=== PATIENT | female | born 2000 | race Hispanic/Latino ===

== ENCOUNTER 2024-03-30 08:06 | Emergency (ER) | payer BC, OTHER ==
[2024-03-30] MEDS ORDERED: NA CHLORIDE 0.9% 1,000 ML ONE ×2 (08:26→10:00)
[2024-03-30] MEDS ORDERED: KETOROLAC 30 MG/ML INJ ONE (08:33)
[2024-03-30] MEDS ORDERED: DIPHENHYDRAMINE 50 MG/ML VIAL ONE (08:33)
[2024-03-30] MEDS ORDERED: METOCLOPRAMIDE 10 MG/2mL INJ ONE (08:34)
[2024-03-30 08:48] LABS: Absolute Basophils 0.1 K/uL (0-0.5); Absolute Eosinophils 0.5 K/uL (0-0.5); Absolute Lymphocytes (CBC) 3.5 K/uL (0.7-4.9); Absolute Monocytes 0.5 K/uL (0.1-1.3); Absolute Neutrophil 3.7 K/uL (1.8-8.0); Eosinophils % 5.8 % (0-4.4); Hematocrit 38.6 % (36.0-45.0); Hemoglobin 12.9 g/dL (12.0-15.0); Lymphocytes % 42.9 % (15.3-44.8); MCH 29.5 pg (27.0-35.0); MCHC 33.5 g/dL (32.0-36.0); MPV 7.2 fL (7.6-11.3); Monocytes % 5.5 % (3.3-12.3); Neutrophils % 44.8 % (41.7-73.7); Platelets 404 thou/uL (152-406); RBC Red Blood Cell Count 4.39 M/uL (3.86-4.86); Red Cell Distribution Width 13.3 % (12.1-15.2)
--- NOTE | 2024-03-30 09:02 | RAD REPORT ---
EXAM DESCRIPTION: US - Abdomen Exam Limited - 03/30/2024 8:53 am CLINICAL HISTORY: RUQ abdomen pain COMPARISON: No comparisons FINDINGS: The gallbladder demonstrates no gallstones. No pericholecystic fluid or gallbladder wall t hickening. The common bile duct is mildly prominent for age measuring 6 mm. The liver demonstrates no findings of intrahepatic biliary dilatation. IMPRESSION: Cholelithiasis. Upper limit of normal common bile duct for age.
[2024-03-30 09:04] LABS: Albumin 3.4 g/dL (3.4-5.0); Albumin/Globulin Ratio 0.9 (1.1-1.8); Anion Gap 6.4 mEq/L (5.0-15.0); Bilirubin Total 1.2 mg/dL (0.2-1.0); Globulin 3.6 g/dL (2.3-3.5); Potassium 3.4 mEq/L (3.5-5.1)
[2024-03-30 09:31] LABS: Sqamous Epithelial 20-50 /HPF (None Seen); Urine Bacteria None Seen /HPF (<20); Urine Bilirubin NEGATIVE (Negative); Urine Blood Negative (Negative); Urine Clarity Extremely Turbid (Clear); Urine Color Yellow (Yellow); Urine Culture Reflex Order NOT NEEDED; Urine Glucose NEGATIVE (Negative); Urine Ketones NEGATIVE (Negative); Urine Microscopic Reflex YN ORDER UMIC; Urine Mucus 4+ /HPF (None Seen); Urine Nitrite NEGATIVE (Negative); Urine Protein 1+ (Negative); Urine Urobilinogen Normal (Normal); Urine WBC <5 /HPF (<5)
--- NOTE | 2024-03-30 10:22 | RAD REPORT ---
EXAM DESCRIPTION: CTAbdomen Pelvis W Contrast - 03/30/2024 9:42 am CLINICAL HISTORY: Abdominal pain. ABD PAIN COMPARISON: Abdomen Exam Limited dated 03/30/2024 TECHNIQUE: Biphasic CT imaging of the abdomen and pelvis was performed with 100 ml non-ionic IV cont rast. All CT scans are performed using dose optimization technique as appropriate and may include automated exposure control or mA/KV adjustment according to patient size. FINDINGS: Small calcified granuloma left lung base. Calcified left hilar lymph nodes also seen. The findings likely indicate previous granulomatous infection. Liver size is prominent with diffuse fatty liver. No biliary dilatation is seen. 22 mm vague low-dens ity lesion in the right lobe of the liver laterally is seen, likely benign but incompletely assessed. The spleen, pancreas, adrenal glands and kidneys are within normal limits. No bowel obstruction, free air, free fluid or abscess. There is a mild thickened appearance to the wa ll of the ascending colon and transverse colon which could indicate a mild nonspecific colitis. The a ppendix is normal. No evidence of significant lymphadenopathy. No suspicious bony findings. IMPRESSION: Mild thickened appearance to the ascending and transverse colon suggests a mild nonspeci fic colitis. Evidence of prior granulomatous infection. Mild fatty liver.
[2024-03-30] MEDS ORDERED: metroNIDAZOLE 500 MG TABLET ONE (11:03)
[2024-03-30] MEDS ORDERED: CIPROFLOXACIN HCL 500 MG TAB ONE (11:03)
--- NOTE | 2024-03-30 11:23 | ER ---
Nurse's Notes [facility] Name: Katherin Garcia Age: 23 yrs Sex: Female : 2000 Arrival Date: 03/30/2024 Time: 08:06 Bed 14 Private MD: Diagnosis: Colitis;Other cholelithiasis without obstruction Presentation: 03/30 08:15 Chief complaint: Patient states: Upper abdominal pain started suddenly at 0740 AM with ll1 nausea. Feels weak and shaky, no known fever. Coronavirus screen: Client denies travel out of the [place] in the last 14 days. fatigue, nausea. Ebola Screen: Patient denies travel to an Ebola-affected area in the 21 days before illness onset. Initial Sepsis Screen: Does the patient meet any 2 criteria? No. Patient's initial sepsis screen is negative. Does the patient have a suspected source of infection? No. Patient's initial sepsis screen is negative. Risk Assessment: Do you want to hurt yourself or someone else? Patient reports no desire to harm self or others. Onset of symptoms was March 30, 2024. 08:15 Method Of Arrival: Ambulatory ll1 08:15 Acuity: BRENNEN 2 ll1 Triage Assessment: 08:16 General: Appears distressed, uncomfortable, Behavior is calm, cooperative, appropriate ll1 for age. General: Reports feeling ill for fatigue for. Pain: Complains of pain in upper abdomen Pain currently is 8 out of 10 on a pain scale. Quality of pain is described as aching, crampy. Neuro: Reports weakness. GI: Reports upper abdominal pain, cramping, nausea. Historical: - Allergies: 08:14 No Known Allergies; ll1 - PMHx: 08:14 None; ll1 - PSHx: 08:14 None; ll1 - Immunization history:: Adult Immunizations up to date. - Infectious Disease History:: Denies. - Social history:: Smoking status: Reported history of juuling and/or vaping. Patient denies any tobacco usage or history of. Screenin:31 [facility] ED Fall Risk Assessment (Adult) History of falling in the last 3 months, bp including since admission No falls in past 3 months (0 pts). Abuse screen: Denies threats or abuse. Denies injuries from another. Nutritional screening: No deficits noted. Tuberculosis screening: No symptoms or risk factors identified. Assessment: 08:31 General: Appears in no apparent distress. uncomfortable, obese, Behavior is calm, bp cooperative, appropriate for age. Pain: Complains of pain in abdomen. GI: Bowel sounds present X 4 quads. Abd is soft X 4 quads. 08:51 Reassessment: [place]ED FROM [place] bp 10:35 Reassessment: No changes from previously documented assessment. Patient and/or family mb9 updated on plan of care and expected duration. Pain level reassessed. Patient is alert, oriented x 3, equal unlabored respirations, skin warm/dry/pink. Vital Signs: 08:15 BP 96 / 62; Pulse 48; Resp 16; Temp 97.6; Pulse Ox 97% on R/A; Weight 86.18 kg; Height ll1 5 ft. 4 in. ; Pain 8/10; 08:52 BP 92 / 46; Pulse 47; Resp 15; Pulse Ox 94% ; bp 09:30 BP 97 / 59; Pulse 55; Resp 16; Pulse Ox 95% ; bp 11:07 BP 105 / 73; Pulse 62; Resp 18; Pulse Ox 100% on R/A; mb9 08:15 Body Mass Index 32.61 (86.18 kg, 162.56 cm) ll1 08:15 Pain Scale: Adult ll1 ED Course: 08:07 Patient arrived in ED. mr 08:09 Que Acosta, RN is Primary Nurse. bp 08:09 Ehsan Fernández MD is Attending Physician. sp3 08:14 Arm band placed on Patient placed in an exam room, on a stretcher. ll1 08:16 Triage completed. ll1 08:22 Alberto Mujica PA is PHCP. cp 08:31 Patient has correct armband on for positive identification. bp 08:39 Inserted saline lock: 20 gauge in left antecubital area, using aseptic technique. Blood rc3 collected. 08:40 CBC with Diff Sent. rc3 08:40 CMP Sent. rc3 08:40 Lipase Sent. rc3 08:40 Lactate w/ 2H reflex if indic. Sent. rc3 08:54 US Abdomen Limited In Process Unspecified. EDMS 09:44 CT Abd/Pelvis - IV Contrast Only In Process Unspecified. EDMS 11:08 No provider procedures requiring assistance completed. mb9 11:20 Alireza Flower MD is Referral Physician. cp 11:33 IV discontinued, intact, bleeding controlled, No redness/swelling at site. Pressure mb9 dressing applied. Administered Medications: 08:51 Drug: NS 0.9% IV 1000 ml IV at 1 bolus Per protocol; 1000 mL bolus Route: IV; Rate: 1 bp bolus; Site: left antecubital; 08:51 Drug: Ketorolac IVP 15 mg IVP once; if test negative Route: IVP; Site: left bp antecubital; 08:51 Drug: metoCLOPramide IVP 10 mg IVP once; over 1 to 2 minutes Route: IVP; Site: left bp antecubital; 08:51 Drug: diphenhydrAMINE IVP 25 mg IVP once Route: IVP; Site: left antecubital; bp 10:03 Drug: NS 0.9% IV 1000 ml IV at 1 bolus Per protocol; 1000 mL bolus Route: IV; Rate: 1 bp bolus; Site: left antecubital; 11:06 Drug: Ciprofloxacin PO 500 mg PO once Route: PO; mb9 11:06 Drug: metroNIDAZOLE PO 500 mg PO once Route: PO; mb9 Medication: 08:31 VIS not applicable for this client. bp Outcome: 11:23 Discharge ordered by MD. cp 11:33 Discharged to home ambulatory, mb9 11:33 Condition: stable 11:33 Discharge instructions given to patient, Instructed on discharge instructions, follow up and referral plans. Demonstrated understanding of instructions, follow-up care, medications, Prescriptions given X 4, 11:34 Patient left the ED. mb9 Signatures: Dispatcher [employer] EDTN Jyoti Zelaya, [facility] Reg mr Alberto Mujica PA PA Que [place], RN RN bp Calli Reza RN RN ll1 Ehsan Fernández MD MD sp3 Jyoti Zavala RN RN mb9 Brianda Hughes3 Corrections: (The following items were deleted from the chart) 08:15 08:14 PSHx: Unable to Obtain; ll1 ll1 08:55 08:52 Pulse 47bpm; Resp 15bpm; Pulse Ox 94%; bp bp
--- NOTE | 2024-03-30 11:23 | EDPHYS ---
Physician Documentation [facility] Name: Katherin Garcia Age: 23 yrs Sex: Female : 2000 Arrival Date: 03/30/2024 Time: 08:06 Bed 14 Private MD: ED Physician Ehsan Fernández HPI: 03/30 08:25 This 23 yrs old Female presents to ER via Ambulatory with complaints of cp Abdominal Pain. 08:25 The patient presents with abdominal pain in the upper abdomen. Onset: The cp symptoms/episode began/occurred suddenly, this morning. Associated signs and symptoms: Pertinent positives: nausea, Pertinent negatives: blood in stools, chest pain, constipation, diarrhea, vomiting. The symptoms are described as constant. Severity of pain: in the emergency department the pain has improved moderately. Historical: - Allergies: 08:14 No Known Allergies; ll1 - PMHx: 08:14 None; ll1 - PSHx: 08:14 None; ll1 - Immunization history:: Adult Immunizations up to date. - Infectious Disease History:: Denies. - Social history:: Smoking status: Reported history of juuling and/or vaping. Patient denies any tobacco usage or history of. ROS: 08:30 Constitutional: Negative for fever, poor PO intake, cp 08:30 Eyes: Negative for injury, pain, redness, and discharge, cp 08:30 ENT: Negative for drainage from ear(s), ear pain, sore throat, difficulty swallowing, difficulty handling secretions, 08:30 Cardiovascular: Negative for chest pain, palpitations, 08:30 Respiratory: Negative for cough, shortness of breath, wheezing, 08:30 Abdomen/GI: Positive for abdominal pain, nausea, Negative for vomiting, diarrhea, constipation, 08:30 Back: Negative for injury or acute deformity, pain at rest, radiated pain, 08:30 : Negative for urinary symptoms, hematuria, pelvic pain, flank pain, 08:30 Neuro: Positive for weakness, Negative for altered mental status, dizziness, headache, syncope, near syncope, 08:30 All other systems are negative, Exam: 08:35 Constitutional: The patient appears in no acute distress, alert, awake, cp non-diaphoretic, non-toxic, well developed, well nourished, 08:35 Head/Face: Normocephalic, atraumatic. cp 08:35 Eyes: Periorbital structures: appear normal, Conjunctiva: normal, no exudate, no injection, Sclera: no appreciated abnormality, Lids and lashes: appear normal, bilaterally, 08:35 ENT: External ear(s): are unremarkable, Nose: is normal, Mouth: Lips: moist, Oral mucosa: pink and intact, moist, Posterior pharynx: Airway: no evidence of obstruction, patent, 08:35 Neck: ROM/movement: is normal, is supple, without pain, no range of motions limitations, no meningismus, 08:35 Chest/axilla: Inspection: normal, 08:35 Cardiovascular: Rate: bradycardic, Rhythm: regular, Edema: is not appreciated, JVD: is not appreciated, 08:35 Respiratory: the patient does not display signs of respiratory distress, Respirations: normal, no use of accessory muscles, no retractions, labored breathing, is not present, Breath sounds: are clear throughout, no decreased breath sounds, no stridor, no wheezing, 08:35 Abdomen/GI: Inspection: abdomen appears normal, Bowel sounds: active, all quadrants, Palpation: soft, in all quadrants, moderate abdominal tenderness, in the epigastric area and right upper quadrant, rebound tenderness, is not appreciated, involuntary guarding, is not appreciated, 08:35 Back: ROM is normal, CVA tenderness, is absent, 08:35 Skin: no rash present. 09:12 ECG was reviewed by the Attending Physician. cp Vital Signs: 08:15 BP 96 / 62; Pulse 48; Resp 16; Temp 97.6; Pulse Ox 97% on R/A; Weight 86.18 kg; Height ll1 5 ft. 4 in. ; Pain 8/10; 08:52 BP 92 / 46; Pulse 47; Resp 15; Pulse Ox 94% ; bp 09:30 BP 97 / 59; Pulse 55; Resp 16; Pulse Ox 95% ; bp 11:07 BP 105 / 73; Pulse 62; Resp 18; Pulse Ox 100% on R/A; mb9 08:15 Body Mass Index 32.61 (86.18 kg, 162.56 cm) ll1 08:15 Pain Scale: Adult ll1 MDM: 08:09 Patient medically screened. sp3 09:00 Differential diagnosis: appendicitis, cholecystitis, Cholelithiasis, diverticulitis, cp gastritis, non-specific abd pain, pancreatitis, Peptic Ulcer Disease, Pelvic Inflammatory Disease, Pyelonephritis, Ureterolithiasis, urinary tract infection, colitis. 11:22 Data reviewed: vital signs, nurses notes, lab test result(s), radiologic studies, CT cp scan, ultrasound, and as a result, I will discharge patient. 11:22 I considered the following discharge prescriptions or medication management in the emergency department Medications were administered in the Emergency Department. See MAR. Counseling: I had a detailed discussion with the patient and/or guardian regarding the historical points, exam findings, and any diagnostic results supporting the discharge/admit diagnosis, lab results, radiology results, the need for outpatient follow up, for definitive care, a general surgeon, a rat exterminator, to return to the emergency department if symptoms worsen or persist or if there are any questions or concerns that arise at home. Response to treatment: the patient's symptoms have markedly improved after treatment, and as a result, I will discharge patient. 03/30 08:21 Order name: CBC with Diff; Complete Time: 09: [facility] 03/30 09:05 Interpretation: Normal except: MPV 7.2; EOSINOPHIL % 5.8. 03/30 08:21 Order name: CMP; Complete Time: 09: [facility] 03/30 09:05 Interpretation: Normal except: K 3.4; GLUC 145; AST 14; BILIT 1.2; GLOB 3.6; A/G 0.9. 03/30 08:21 Order name: Lipase; Complete Time: 09: [facility] 03/30 08:21 Order name: Test, Urine; Complete Time: 09:31 [facility] 03/30 08:21 Order name: Urinalysis w/ reflexes; Complete Time: 09: [facility] 03/30 09:32 Interpretation: Normal except: [facility] Extremely Turbid; UPROT 1+; URBC 5-10; SQEPI 20-50; cp MUCUS 4+. 03/30 08:26 Order name: Lactate w/ 2H reflex if indic.; Complete Time: 09:31 03/30 08:21 Order name: CT Abd/Pelvis - IV Contrast Only; Complete Time: 10:53 [facility] 03/30 10:54 Interpretation: Report reviewed. 03/30 08:26 Order name: US Abdomen Limited; Complete Time: 09: 03/30 09:06 Interpretation: Report reviewed. cp 03/30 09:06 Order name: CT Abd/Pelvis - IV Contrast Only cp 03/30 08:21 Order name: IV Saline Lock; Complete Time: 08:31 sp3 03/30 08:21 Order name: Labs collected and sent; Complete Time: 08:31 sp3 03/30 10:54 Order name: PO challenge; Complete Time: 11:02 cp EC:12 Rate is 69 beats/min. Rhythm is regular. WA interval is normal. QRS interval is normal. cp QT interval is normal. T waves are Inverted in lead III. Interpreted by me. Reviewed by me. Administered Medications: 08:51 Drug: NS 0.9% IV 1000 ml IV at 1 bolus Per protocol; 1000 mL bolus Route: IV; Rate: 1 bp bolus; Site: left antecubital; 08:51 Drug: Ketorolac IVP 15 mg IVP once; if test negative Route: IVP; Site: left bp antecubital; 08:51 Drug: metoCLOPramide IVP 10 mg IVP once; over 1 to 2 minutes Route: IVP; Site: left bp antecubital; 08:51 Drug: diphenhydrAMINE IVP 25 mg IVP once Route: IVP; Site: left antecubital; bp 10:03 Drug: NS 0.9% IV 1000 ml IV at 1 bolus Per protocol; 1000 mL bolus Route: IV; Rate: 1 bp bolus; Site: left antecubital; 11:06 Drug: Ciprofloxacin PO 500 mg PO once Route: PO; mb9 11:06 Drug: metroNIDAZOLE PO 500 mg PO once Route: PO; mb9 Disposition Summary: 03/30/24 11:23 Discharge Ordered Notes: Location: Home cp Problem: new cp Symptoms: have improved cp Condition: Stable cp Diagnosis - Colitis cp - Other cholelithiasis without obstruction cp Followup: cp - With: Alireza Flower MD - When: 2 - 3 days - Reason: colitis Discharge Instructions: - Discharge Summary Sheet cp - Cholelithiasis cp - Colitis cp Forms: - Medication Reconciliation Form cp - Antibiotic Education cp - Prescription Opioid Use cp - Patient Portal Instructions cp - Leadership Thank You Letter cp Prescriptions: - Zofran 4 mg Oral Tablet - take 1 tablet ORAL route every 12 hours As needed; 20 tablet; Refills: 0, cp Product Selection Permitted - Cipro 500 mg Oral tablet - take 1 tablet ORAL route every 12 hours for 10 days; 20 tablet; Refills: 0, cp Product Selection Permitted - Metronidazole 500 mg Oral Tablet - take 1 tablet ORAL route every 8 hours; 30 tablet; Refills: 0, Product cp Selection Permitted - Diclofenac Sodium 75 mg Oral Tablet Sustained Release - take 1 tablet ORAL route 2 times per day; 30 tablet; Refills: 0, Product cp Selection Permitted Signatures: Dispatcher [employer] EDMS Alberto Mujica PA PA cp Peltier, Brian, RN RN bp Calli Reza RN RN ll1 Ehsan Fernández MD MD sp3 Jyoti Zavala RN RN mb9 Corrections: (The following items were deleted from the chart) 08:15 08:14 PSHx: Unable to Obtain; ll1 ll1 08:22 08:21 CBC+H.LAB.BRZ ordered. EDMS EDMS 08:22 08:21 COMPREHENSIVE METABOLIC PANEL+C.LAB.BRZ ordered. EDMS EDMS 08:22 08:21 LIPASE+C.LAB.BRZ ordered. EDMS EDMS 08:22 08:21 Test, Urine+UC.LAB.BRZ ordered. EDMS EDMS 08:22 08:21 Urinalysis+U.LAB.BRZ ordered. EDMS EDMS
[2024-03-30 11:41] VITALS: TEMP 97.6
[2024-03-30 12:06] VITALS: BP 105/73; O2SAT 100
== END 2024-03-30 11:34 | disposition home or self-care (01) ==
LOC: ER 08:06
DX: K52.9 Noninfective gastroenteritis and colitis, unspecified (principal); K80.80 Other cholelithiasis without obstruction
CPT/HCPCS: 85025; 81001; 36415; 81025; 83605; 83690; 80053; 74177; 76705; 96375; 96374; 99284; Q9967; J2765; J1200; J7030 ×2

== ENCOUNTER 2024-04-16 10:00 | Day surgery (SDC) | payer OTHER ==
[2024-04-16] MEDS: Ringers Lactate 1,000 ML IV ONE (10:45)
[2024-04-16] MEDS ORDERED: ONDANSETRON 4 MG/2 ML VIAL ONE (10:45)
[2024-04-16] MEDS ORDERED: KETOROLAC 30 MG/ML INJ ONE (10:45)
[2024-04-16] MEDS ORDERED: dexAMETHasone 10 MG/ML VIAL ONE (10:45)
[2024-04-16] MEDS ORDERED: LIDOCAINE 1% MPF 5 ML VIAL ONE (10:45)
[2024-04-16] MEDS ORDERED: propofoL 200 MG/20 ML VIAL IV ONE (10:45)
[2024-04-16] MEDS ORDERED: FENTANYL CITR 100 MCG/2 ML ONE (10:45)
[2024-04-16] MEDS ORDERED: MIDAZOLAM HCL 2 MG/2 ML INJ ONE (10:46)
[2024-04-16] MEDS ORDERED: ROCURONIUM 50 MG/5 ML VIAL IV ONE (10:46)
[2024-04-16] MEDS: CEFOXITIN SODIUM 2 GM/VIAL ONE (10:51)
[2024-04-16] MEDS: LIDOCAINE HCL/EPINEPHRINE 20 ML MDV ONE (10:52)
[2024-04-16 12:09] LABS: Urine Specific Gravity/Preg 1.025 (1.005-1.030)
[2024-04-16] MEDS ORDERED: NEOSTIGMINE 1 MG/ML -10 ML VIAL ONE (12:45)
[2024-04-16] MEDS ORDERED: GLYCOPYRROLATE 0.2 MG/ML SYR ONE (12:45)
--- NOTE | 2024-04-16 13:03 | P.OP ---
Preoperative diagnosis: Cholecystitis with Cholelithasis Postoperative diagnosis: Cholecystitis with Cholelithasis Primary procedure: Laparoscopic Cholecystectomy with ICG Cholangiography Anesthesia: GETA + Local Estimated blood loss: <5cc Specimen: Gallbladder Findings: Contracted GB with Cholelithiasis Complications: None Transferred to: Recovery Room Condition: Good
[2024-04-16] MEDS: MORPHINE 4 MG/ML SYR ONE (13:20)
[2024-04-16 13:53] VITALS: O2SAT 99
[2024-04-16 14:55] VITALS: BP 119/76; TEMP 98
--- NOTE | 2024-04-17 01:58 | OP ---
Date of Procedure: 04/16/2024 Surgeon: Cash Lee MD, Preoperative Diagnoses: Cholecystitis with cholelithiasis. Postoperative Diagnoses: Cholecystitis with cholelithiasis. Procedures Performed: Laparoscopic cholecystectomy with indocyanine green cholangiography. Anesthesia: General endotracheal plus local with 0.25% Marcaine. Estimated Blood Loss: Less than 5 cc. Specimen: Gallbladder. Findings: Contracted gallbladder with cholelithiasis. Complications: None. Disposition: The patient was transferred to recovery room in good condition. Procedure In Detail: After informed consent was obtained, the patient was brought to the operating r oom, and prepped and draped in the usual sterile fashion. After adequate anesthesia was achieved, I made a supraumbilical incision down to subcutaneous tissues. A 5-Malagasy 0-degree optical trocar was introduced in the abdomen without incident or complication. Insufflation was obtained to 15 mmHg. A t this time, there was no injury to vital structure upon entry into the abdomen. Two additional troc ars were placed, one in the epigastrium and one in the right upper quadrant. Both of these were suma larly anesthetized and sharply incised. A 5 mm trocar was placed under direct visualization without incident or complication. The patient was positioned in the head up right-side up position. Ratchet ed graspers were used to grasp the patient's gallbladder and placed it toward the patient's right sherrie ulder. The umbilical trocar was a 12 mm trocar and exchanged earlier, was used for the camera trocar . I then dissected down the Bucky's pouch of the gallbladder and dissected out 2 structures and i dentified both cystic duct and cystic artery. Critical view of safety was obtained at this point. I ndocyanine green cholangiography confirmed the anatomy at the confluence of the cystic duct common du ct junction, which was away from the transection plane. At this point, double titanium clips were do ubly on the proximal side and singly on the distal side of both cystic duct and cystic artery. These structures were then ligated between Endo Guillermo. The gallbladder was then removed from the hepatic fossa without incident or complication using electrocautery. Minimal electrocautery was required to fulgurate the bed of the gallbladder. After the gallbladder was placed in EndoCatch bag, removed th rough the umbilical trocar and sent off for pathologic examination. The area was copiously irrigated multiple times until completely clear. Indocyanine green cholangiography confirmed no leakage of bi le at the end of the procedure. Clips were found to be in good anatomic position. No additional hem ostat was required at this point. The remaining effluent was suctioned out after the patient was pos itioned back in neutral position. The 12 mm trocar site was closed using a Merlin-Dandre suture pa sser with 0 Vicryl in an interrupted fashion, with good approximation of tissues. The abdomen was de sufflated under direct visualization without incident or complication. Remainder of trocars removed. All skin edges were then copiously irrigated and closed with a 4-0 Monocryl in a running fashion. Dermabond was placed over top. The patient tolerated the procedure well without incident or complica tion, transferred to PACU in good condition. All counts were correct at the end of the case. JOSE/NAZARIO Voice ID: [id number] Report ID: [id number]
== END 2024-04-16 14:30 | disposition home or self-care (01) ==
LOC: OR 10:00
PROVIDERS: ATTEND Surgery
PROC: BF50200 Other Imaging of Bile Ducts using Fluorescing Agent, Indocyanine Green Dye, Intraoperative (ICD-10-PCS; 2024-04-16)
PROC: 0FT44ZZ Resection of Gallbladder, Percutaneous Endoscopic Approach (ICD-10-PCS; principal; 2024-04-16 12:00)
DX: K80.10 Calculus of gallbladder with chronic cholecystitis without obstruction (principal)
CPT/HCPCS: 81025; 88304; J0694; J1100; J2001; J2250; J2405; J2704; J2710; J3010; J7120

== ENCOUNTER 2024-11-13 13:59 | Emergency (ER) | payer OTHER ==
--- OUTSIDE RECORDS SUMMARY | 2024-11-13 14:03 | XMS REPORT | Continuity of Care Document ---
Author Name Unknown Address [address] [facility] [address] [place] [address] [facility] thconnect Address [address] [facility] 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 Role Phone Edith Smith Primary Care Physician [phone] Oc Madden RN Attending Clinician Unavailable Alpesh Up MD Attending Clinician [phone] Doctor Unassigned, [place] Attending Clinician U Manny Clark Attending Clinician [phone] Cristela Copeland Attending Clinician [phone] CRISTELA LU Attending Clinician Unavailable YOSI_FELECIA_Daron_S Attending Clinician UnavailCRISTELA Langston Admitting Clinician Unavailable YOSI_FELECIA_Daron_Shannan Admitting Clinician Unavaila nikkie Payers Payer Name Policy Type Policy Number Effective Date Expirati on Date Source [facility] [id number] Problems Condition Name Condition Details Condition Category Status Onset Date Resolution Date Last Treatment Date Treating Clinician Comments Source 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 03-19 00:00: 00 [facility] Symptomati c cholelithi asis Symptomati c cholelithi asis Disease Active 02-20 00:00: 00 [facility] Elevated blood-pres sure reading without diagnosis of hypertensi on Elevated Blood-pres sure Reading without Diagnosis of Hypertensi on Problem Active 2-15 00:00: 00 [facility] Obesity Obesity Problem Active 2-15 00:00: 00 [facility] Gonococcal vulvovagin itis Gonococcal Vulvovagin itis Problem Active 2019-10 0-27 00:00: 00 [facility] Irregular periods Irregular Periods Problem Active 2019-10 0-21 00:00: 00 [facility] Contracept ion care education Contracept ion Care Education Problem Active 2019-10 0 00:00: 00 [facility] Gynecologi allegra examinatio n abnormal Gynecologi allegra Examinatio n Abnormal Problem Active 2019-10 0- 00:00: 00 [facility] Acute vaginitis Acute Vaginitis Problem Active 2019-10 0 00:00: 00 [facility] Allergies, Adverse Reactions, Alerts Allergy Name Allergy Type Status Severity Reaction(s) Onset Date Inactive Date Treating Clinician Comments Source NO KNOWN ALLERGIE S Drug Class Active [facility] Social History Social Habit Start Date Stop Date Quantity Comments Source Sexual orientation U [facility] History of Social function 2024-03-26 00:00:00 2024-03-26 00:00:00 [facility] Tobacco use and exposure 2024-02-21 00:00:00 2024-02-21 00:00:00 User of smokeless tobacco [facility] Sex assigned at 2000 00:00:00 2000 00:00:00 [facility] Smoking Status Start Date Stop Date Source Tobacco smoking consumption unknown [facility] Never smoked tobacco [facility] Medications Ordered Medication Name Filled Medication Name Start Date Stop Date Current Medication? Ordering Clinician Indication Dosage Frequency Signature (SIG) Comments Components Source maalox:diph enhydrAMINE :lidocaine 2 % viscous 1:1:1 (FIRST-MOUT HWASH BLM) oral suspension 15 mL 01-19 09:15: 00 01-19 09:14 :00 No 15mL 15 mL, Oral, ONCE, 1 dose, On Sat01/20/24 at 0415, Routine [facility] famotidine (PEPCID (PF)) injection 20 mg 01-19 09:15: 00 01-19 09:15 :00 No 20mg 20 mg, Slow IV Push, ONCE, 1 dose, On Sat01/20/24 at 0415, [facility] ondansetron (ZOFRAN (PF)) injection 4 mg 01-19 05:30: 00 01-19 05:41 :00 No 4mg 4 mg, Slow IV Push, ONCE, 1 dose, On Sat01/20/24 at 0030, [facility] NaCl 0.9% (NS) bolus infusion 1,000 mL 01-19 05:30: 00 01-19 06:56 :00 No 1000mL at 999 mL/hr, 1,000 mL, IV Infusion, ONCE, 1 dose, On Sat01/20/24 at 0030, [facility] ondansetron 4 mg disintegrat ing tablet 01-19 00:00: 00 03-26 00:00 :00 No [id number] 4mg Take 1 tablet by mouth every 8 (eight) hours as needed for Nausea and Vomiting (N/V). [facility] ketorolac 10 mg tablet 01-19 00:00: 00 03-26 00:00 :00 No TAKE 1 TABLET BY MOUTH EVERY 6 HOURS NEEDED FOR PAIN SCALE 4-6 [facility] metronidazo le 500 mg tablet 1 tablet; twice a day; 7 day(s) metronidazo le 500 mg tablet 1 tablet; twice a day; 7 day(s) No metronidaz ole 500 mg tablet 1 tablet; twice a day; 7 day(s) [facility] Vital Signs Vital Name Observation Time Observation Value Comments S holli Systolic blood pressure 2024-03-19 20:27:00 128 mm[Hg] [facility] Diastolic blood pressure 2024-03-19 20:27:00 94 mm[Hg] [facility] Heart rate 2024-03-19 20:27:00 95 /min [facility] Body temperature 2024-03-19 20:27:00 36.28 Ally [facility] Body height 2024-03-19 20:27:00 162.6 cm [facility] Body weight 2024-03-19 20:27:00 87.771 kg Univ [facility] BMI 2024-03-19 20:27:00 33.21 kg/m2 [facility] Oxygen saturation in Arterial blood by Pulse oximetry 2024-03-19 20:27:00 99 /min [facility] Systolic blood pressure 2024-02-21 19:30:00 122 mm[Hg] [facility] Diastolic blood pressure 2024-02-21 19:30:00 87 mm[Hg] [facility] Heart rate 2024-02-21 19:30:00 92 /min Un[facility] Body temperature 2024-02-21 19:30:00 36.72 Ally [facility] Body height 2024-02-21 19:30:00 162.6 cm [facility] Body weight 2024-02-21 19:30:00 89.313 kg [facility] BMI 2024-02-21 19:30:00 33.80 kg/m2 [facility] Oxygen saturation in Arterial blood by Pulse oximetry 2024-02-21 19:30:00 99 /min [facility] Systolic blood pressure 2024-01-20 09:15:00 127 mm[Hg] [facility] Diastolic blood pressure 2024-01-20 09:15:00 95 mm[Hg] [facility] Heart rate 2024-01-20 09:15:00 87 /[facility] Oxygen saturation in Arterial blood by Pulse oximetry 2024-01-20 09:15:00 95 /min [facility] Respiratory rate 2024-01-20 06:00:00 16 /min [facility] Body weight 2024-01-20 05:16:00 87.454 kg [facility] BMI 2024-01-20 05:16:00 33.09 kg/m2 [facility] Body temperature 2024-01-20 05:16:00 37.39 Ally [facility] Body height 2024-01-20 05:16:00 162.6 cm [facility] Procedures Procedure Date / Time Performed Performing Clinicia n Source EBV-MONONUCLEOSIS SCREEN 2024-01-20 07:44:00 Cristela Lu [facility] US GALL BLADDER 2024-01-20 07:18:17 [facility] 2024-01-20 05:29:00 Cristela Lu [facility] COMP. METABOLIC PANEL (03585) 2024-01-20 05:29:00 Cristela Lu [facility] CBC WITH DIFF 2024-01-20 05:29:00 Cristela Lu [facility] URINALYSIS 2024-01-20 05:29:00 Cristela Lu [facility] POCT TEST 2024-01-20 05:26:00 Cristela Lu [facility] Plan of Care Planned Activity Planned Date Details Comments Source Diagnostic Test Pending 2023-12-05 00:00:00 Ox-e ye urmila IgE Ab [Units/volume] in Serum [code = 6196-0] [facility] Appointment 2024-12-11 14:30:00 Sharon tinoe, [address] [place] [address] S; [address] [address] [facility] Encounters Start Date/Time End Date/Time Encounter Type Admission Type Attending Clinicians Care Facility Care Department Encounter ID Source 2024-11-13 00:00:00 2024-11-13 13:47:17 Nurse Triage Oc Madden Sean [facility] [id number] 350.1.13.10 [id number] [id number] [facility] 2024-05-07 00:00:00 2024-05-07 15:47:30 Telephone Alpesh Up [facility] 1.2.840.114 350.1.13.10 4.2.7.2.686 [id number] [facility] 2024-03-23 00:00:00 2024-04-25 18:23:28 Patient Secure Msg Doctor Unassigned, [place] [facility] 1.2.840.114 350.1.13.10 4.2.7.2.686 [id number] [facility] 2024-03-24 00:00:00 2024-04-06 11:20:30 Telephone Alpesh Up [facility] 1.2.840.114 350.1.13.10 4.2.7.2.686 [id number] [facility] 2024-03-19 15:30:00 2024-03-19 15:41:33 Office Visit Alpesh Up [facility] 1.2.840.114 350.1.13.10 4.2.7.2.686 [id number] [facility] 2024-02-21 14:30:00 2024-02-21 14:48:20 Office Visit Manny Schroeder [facility] 1.2.840.114 350.1.13.10 4.2.7.2.686 [id number] [facility] 2024-01-20 00:19:00 2024-01-20 04:43:00 Emergency Cristela Lu [facility] 1.2.840.114 350.1.13.10 4.2.7.2.686 [id number] [facility] 2024-01-20 00:19:00 2024-01-20 04:43:00 Emergency X CRISTELA LU [facility] ERT [id number] [facility] 2023-12-05 00:00:00 2023-12-05 00:00:00 Outpatient GC_GCBZW_Ka dimanjulaa_S [facility] [id number] [facility] 2023-12-05 00:00:00 2023-12-05 00:00:00 Jacki Larson, STABLE HELPER: [address], [address], [place] [address] , Ph. [facility] - GC_GCBZW_Salina Lafleur* [id number] [facility] 2023-12-03 00:00:00 2023-12-03 00:00:00 Outpatient GC_GCBZW_Ka diyala_S [facility] [id number] [facility] 2023-08-17 00:00:00 2023-08-17 00:00:00 Outpatient GC_GCBZW_Ka diyala_S [facility] [id number] [facility] Results Test Description Test Time Test Comments Results Result Comments Source US GALL BLADDER 08:58:34 Ordering Physician: ?CRISTELA KRAMER HISTORY: Right upper quadrant pain. COMPARISON: none Permanently recorded sonographic images were stored in the PACs system. ? FINDINGS:The liver is normal in echogenicity without focal mass. Multiplestones are seen in the gallbladder. No wall thickening or pericholecysticfluid are present. There is no sonographic Cole's sign. The common bileduct measures 2.9 mm. . ?The pancreatic head and body appear normal. Thetail was poorly visualized. ? ?No free fluid is seen in the abdomen. Color imaging demonstrates normal hepatopetal flow within the main portalvein. ? Pulse color doppler examination demonstrates a normal portal venouswaveform in the main portal vein. [id number][facility]-20 05:58:51* Test Item Value Reference Range Interpretation Comme nts NA (test code = 0937458775) 138 mmol/L 135-145 K (test code = 0440952855) 4.2 mmol/L 3.5-5.0 CL (test code = 0080751698) 102 mmol/L 98-108 CO2 TOTAL (test code = 0149483448) 28 mmol/L 23-31 AGAP (test code = 6309961043) 8 2-16 BUN (test code = 9735311258) 10 mg/dL 7-23 GLUCOSE (test code = 7905379954) 107 mg/dL 70-110 CREATININE (test code = 2160-0) 0.67 mg/dL 0.50-1.04 TOTAL BILI (test code = 6763692766) 2.8 mg/dL 0.1-1.1 H CALCIUM (test code = 7831776250) 9.7 mg/dL 8.6-10.6 T PROTEIN (test code = 3511120296) 8.6 g/dL 6.3-8.2 H ALBUMIN (test code = 9674325740) 4.5 g/dL 3.5-5.0 ALK PHOS (test code = 0454437313) 93 U/L 34-122 ALTv (test code = 1742-6) 83 U/L 5-35 H AST(SGOT) (test code = 9422676556) 199 U/L 13-40 H eGFR (test code = 48886-3) 126.1 mL/min/1.73m2 CKD-EPI eGFR (2020). Assuming creatinine has been stable day-to-day for at least three months, the eGFR indicates Category G1 (>= 90 mL/min/1.73 m2) Lab Interpretation (test code = 42967-4) [facility] 05[facility]58:11* Test Item Value Reference Range Interpretation Comme nts LIPASE (test code = 8322970445) 94 U/L 0-220 Lab Interpretation (test cod e = 28820-7) Normal [facility] [id number] 05:46:14* Test Item Value Reference Range Interpretation Comme nts WBC (test code = 6690-2) 12.18 4.30-11.10 H RBC (test code = 789-8) 4.64 3.93-5.25 HGB (test code = 718-7) 14.3 g/dL 11.6-15.0 HCT (test code = 4544-3) 40.7 % 35.7-45.2 MCV (test code = 787-2) 87.7 fL 80.6-95.5 MCH (test code = 785-6) 30.8 pg 25.9-32.8 MCHC (test code = 786-4) 35.1 g/dL 31.6-35.1 RDW-SD (test code = 36338-0) 38.6 fL 39.0-49.9 L RDW-CV (test code = 788-0) 12.0 % 12.0-15.5 PLT (test code = 777-3) 333 166-358 MPV (test code = 00822-4) 9.1 fL 9.5-12.9 L NRBC/100 WBC (test code = 9268209992) 0.0 0.0-10.0 NRBC x10^3 (test code = 4648059381) See_Comment [Automated message] The system which generated this result transmitted reference range: 10*3/?L. The reference range was not used to interpret this result as normal/abnormal. GRAN MAT (NEUT) % (test code = 770-8) 84.9 % IMM GRAN % (test code = 7957740565) 0.30 % LYMPH % (test code = 736-9) 9.9 % MONO % (test code = 5905-5) 3.6 % EOS % (test code = 713-8) 0.7 % BASO % (test code = 706-2) 0.6 % GRAN MAT x10^3(ANC) (test code = 9844122451) 10.33 10*3/uL 1.88-7.09 H IMM GRAN x10^3 (test code = 9185891359) 0.04 10*3/uL 0.00-0.06 LYMPH x10^3 (test code = 731-0) 1.21 10*3/uL 1.32-3.29 L MONO x10^3 (test code = 742-7) 0.44 10*3/uL 0.33-0.92 EOS x10^3 (test code = 711-2) 0.09 10*3/uL 0.03-0.39 BASO x10^3 (test code = 704-7) 0.07 10*3/uL 0.01-0.07 Lab Interpretation (test code = 13528-4) [facility]normal [id number] 05:26:00* Test Item Value Reference Range Interpretation Comme nts POCT PREG (test code = 1605) Negative On board controls acceptable with C Line (test code = 3574) Yes POCT PREG LOT # (test code = 3575) [id number] POCT PREG TEST DATE ( test code = 3576) Lab Interpretation (test cod e = 63197-6) [facility]
--- NOTE | 2024-11-13 15:02 | RAD REPORT ---
EXAMINATION: US FIRST TRIMESTER TRANSVAGINAL WITH DOPPLER CLINICAL INDICATION: with pelvic pain TECHNIQUE: Real-time obstetrical ultrasonography of the maternal pelvis and first trimester was performed transvaginally. Color and spectral Doppler evaluation of the ovaries was performed. COMPARISON: No prior exam. FINDINGS: The uterus measures 9 x 4 x 5 cm. Endometrial stripe measures 13 mm. A gestational sac is not visualized within the endometrium. Right ovary normal in size and echotexture Left ovary normal in size and echotexture Right and left adnexa unremarkable No significant free fluid IMPRESSION: Non visualization of a gestational sac within the endometrium. This could be a viable intrauterine pr egnancy in which the gestational sac not seen secondary to the early gestation. Other considerations include an and even ectopic . This should be correlated clinically and with serial beta-hCG levels. Follow-up endovaginal sonogram in one week recommended for reevaluation
[2024-11-13 16:01] LABS: Specific Gravity < 1.005 (1.005-1.030)
[2024-11-13 16:04] LABS: Specific Gravity < 1.005 (1.005-1.030); Sqamous Epithelial <5 /HPF (None Seen); Urine Bacteria <20 /HPF (<20); Urine Bilirubin NEGATIVE (Negative); Urine Blood 2+ (Negative); Urine Clarity Turbid (Clear); Urine Color Colorless (Yellow); Urine Crystals Unidentified Few /HPF (None Seen); Urine Culture Reflex Order NOT NEEDED; Urine Glucose NEGATIVE (Negative); Urine Ketones NEGATIVE (Negative); Urine Microscopic Reflex YN ORDER UMIC; Urine Nitrite NEGATIVE (Negative); Urine Protein NEGATIVE (Negative); Urine RBC <5 /HPF (None Seen); Urine Urobilinogen Normal (Normal); Urine WBC <5 /HPF (<5); Urine Yeast (Budding) Trace /HPF (None Seen)
[2024-11-13 16:29] LABS: Absolute Basophils 0.1 K/uL (0-0.5); Absolute Eosinophils 0.2 K/uL (0-0.5); Absolute Lymphocytes (CBC) 1.9 K/uL (0.7-4.9); Absolute Monocytes 0.5 K/uL (0.1-1.3); Absolute Neutrophil 4.4 K/uL (1.8-8.0); Basophils % 0.9 % (0-1.3); Eosinophils % 3.4 % (0-4.4); Hematocrit 38.2 % (36.0-45.0); Hemoglobin 13.2 g/dL (12.0-15.0); Lymphocytes % 26.5 % (15.3-44.8); MCH 30.1 pg (27.0-35.0); MCHC 34.6 g/dL (32.0-36.0); MPV 6.7 fL (7.6-11.3); Monocytes % 6.7 % (3.3-12.3); Neutrophils % 62.5 % (41.7-73.7); Platelets 417 thou/uL (152-406); Red Cell Distribution Width 12.8 % (12.1-15.2)
[2024-11-13 16:38] LABS: Anion Gap 9.9 mEq/L (5.0-15.0); Potassium 3.9 mEq/L (3.5-5.1)
--- NOTE | 2024-11-13 17:21 | EDPHYS ---
Physician Documentation [facility] Name: Katherin Garcia Age: 24 yrs Sex: Female : 2000 Arrival Date: 11/13/2024 Time: 13:59 Bed 5 Private MD: ED Physician Jean Carlos Morgan HPI: 11/13 14:11 This 24 yrs old Female presents to ER via Ambulatory with complaints of kb Vaginal Bleeding, + Preg <12wks. 14:11 Pt is a 24 year old female who presents for vaginal bleeding and cramping for 8 days. kb States she had heavy bleeding and pretty severe cramps at the beginning. Today has spotting and mild cramping. Took a test last night and it was positive. LMP 09/04/24. States she has periods every 35-40 days so it was later than normal. First . 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 - Infectious Disease History:: Denies. - Social history:: Smoking status: Reported history of juuling and/or vaping. Patient uses alcohol, only on a social basis. ROS: 14:11 Constitutional: As per HPI kb Exam: 14:13 Constitutional: This is a well developed, well nourished patient who is awake, alert, kb and in no acute distress. Head/Face: Normocephalic, atraumatic. ENT: Moist Mucous membranes Cardiovascular: Regular rate Respiratory: Respirations even and unlabored. No increased work of breathing. Talking in full sentences Abdomen/GI: Soft, non-tender. No distention Skin: Warm, dry with normal turgor. Normal color. MS/ Extremity: Pulses equal, no cyanosis. Neurovascular intact. Full, normal range of motion. Neuro: Awake and alert, GCS 15, oriented to person, place, time, and situation. Vital Signs: 14:07 Pulse 86; Resp 18; Temp 98.2; Pulse Ox 100% ; Weight 90.72 kg; Height 5 ft. 4 in. ; ap3 Pain 2/10; 14:13 BP 150 / 98; ap3 16:02 BP 123 / 87; Pulse 88; Resp 16; Pulse Ox 99% on R/A; db 16:57 BP 126 / 84; Pulse 87; Resp 16; Pulse Ox 97% ; ko1 17:15 BP 129 / 87; Pulse 91; Resp 18; Pulse Ox 97% on R/A; db 14:07 Body Mass Index 34.33 (90.72 kg, 162.56 cm) ap3 14:07 Pain Scale: Adult ap3 MDM: 14:04 Medical Screening Exam initiated kb 14:24 Differential diagnosis: threatened Ab, complete Ab, ectopic , irregular kb menstruation. Data reviewed: vital signs, nurses notes. 17:20 Counseling: I had a detailed discussion with the patient and/or guardian regarding the kb historical points, exam findings, and any diagnostic results supporting the discharge/admit diagnosis, lab results, radiology results, the need for outpatient follow up, an OB/Gyne specialist, to return to the emergency department if symptoms worsen or persist or if there are any questions or concerns that arise at home. 17:20 ED course: Pt has no abd tenderness, is in no distress. Ectopic considered kb but not suspected at this time. Pt educated on strict return precautions and need for repeat HCG in 48 hours. Verbal understanding received. . 11/13 14:04 Order name: Abo/rh Typing; Complete Time: 17:14 kb 11/13 14:04 Order name: Basic Metabolic Panel; Complete Time: 16:40 kb 11/13 14:04 Order name: CBC with Diff; Complete Time: 16:33 kb 11/13 14:04 Order name: Test, Urine; Complete Time: 16:09 kb 11/13 14:04 Order name: Quantitative Hcg; Complete Time: 16:40 kb 11/13 14:04 Order name: Urinalysis w/ reflexes; Complete Time: 16:09 kb 11/13 14:04 Order name: US Transvaginal Ob; Complete Time: 15:07 kb 11/13 14:04 Order name: IV Saline Lock; Complete Time: 16:21 kb 11/13 14:04 Order name: Labs collected and sent; Complete Time: 16:21 kb 11/13 14:04 Order name: NPO; Complete Time: 16:21 kb Administered Medications: No medications were administered Disposition: 11/14 07:02 Co-signature as Attending Physician, Jean Carlos Morgan MD I reviewed the patient's care rt provided by the Advanced Practice Provider and agree with the diagnosis and treatment plan. Disposition Summary: 11/13/24 17:20 Discharge Ordered Notes: Location: Home kb Condition: Stable kb Diagnosis - Threatened kb Followup: kb - With: Emergency Department - When: As needed - Reason: Worsening of condition Followup: kb - With: Private Physician - When: 2 - 3 days - Reason: Recheck today's complaints, Continuance of care, Re-evaluation by your physician Discharge Instructions: - Discharge Summary Sheet kb - Threatened Miscarriage, [id number] kb - Vaginal Bleeding During , First Trimester, [id number] kb Forms: - Medication Reconciliation Form kb - Antibiotic Education kb - Prescription Opioid Use kb - Patient Portal Instructions kb - Leadership Thank You Letter kb Signatures: Dispatcher [employer] EDJaelyn Gomez, TIRE FINISHER-C TIRE FINISHER-Toña Mace RN RN ap3 Jean Carlos Morgan MD MD rt Corrections: (The following items were deleted from the chart) 11/13 14:04 14:04 ABO/RH TYPING+BB.LAB.BRZ ordered. EDMS EDMS 14:04 14:04 BASIC METABOLIC PANEL+C.LAB.BRZ ordered. EDMS EDMS 14:04 14:04 CBC+H.LAB.BRZ ordered. EDMS EDMS 14:04 14:04 Test, Urine+UC.LAB.BRZ ordered. EDMS EDMS 14:04 14:04 QUANTITATIVE HCG+C.LAB.BRZ ordered. EDMS EDMS 14:04 14:04 Urinalysis+U.LAB.BRZ ordered. EDMS EDMS 14:05 14:04 Transvaginal Ob+US.RAD.BRZ ordered. EDMS EDMS
--- NOTE | 2024-11-13 17:21 | ER ---
Nurse's Notes [facility] Name: Katherin Garcia Age: 24 yrs Sex: Female : 2000 Arrival Date: 11/13/2024 Time: 13:59 Bed 5 Private MD: Diagnosis: Threatened Presentation: 11/13 14:07 Chief complaint: Patient states: she has been having heavy bleeding for 8 days with a ap3 positive test last night. LMP 09/05/24, however patient reports being irregular. Coronavirus screen: At this time, the client does not indicate any symptoms associated with coronavirus-19. Ebola Screen: No symptoms or risks identified at this time. Initial Sepsis Screen: Does the patient meet any 2 criteria? No. Patient's initial sepsis screen is negative. Does the patient have a suspected source of infection? No. Patient's initial sepsis screen is negative. Risk Assessment: Do you want to hurt yourself or someone else? Patient reports no desire to harm self or others. Onset of symptoms was November 05, 2024. 14:07 Method Of Arrival: Ambulatory ap3 14:07 Acuity: BRENNEN 3 ap3 Triage Assessment: 14:11 General: Appears in no apparent distress. Behavior is calm, cooperative, appropriate ap3 for age. Pain: Complains of pain in abdomen Pain currently is 2 out of 10 on a pain scale. Neuro: Level of Consciousness is awake, alert, obeys commands, Oriented to person, place, time, situation, Appropriate for age. Cardiovascular: Patient's skin is warm and dry. Respiratory: Airway is patent Respiratory effort is even, unlabored, Respiratory pattern is regular, symmetrical. : Reports vaginal bleeding that is. CARE NURSE RN: 14:13 LMP 09/05/2024, unknown ap3 Historical: - Allergies: 14:11 No Known Allergies; ap3 - Home Meds: 14:11 None [Active]; ap3 - PMHx: 14:11 None; ap3 - PSHx: 14:11 Cholecystectomy; ap3 - Immunization history:: Adult Immunizations up to date. - Infectious Disease History:: Denies. - Social history:: Smoking status: Reported history of juuling and/or vaping. Patient uses alcohol, only on a social basis. Screenin:[address] [facility] ED Fall Risk Assessment (Adult) History of falling in the last 3 months, ap3 including since admission No falls in past 3 months (0 pts) Confusion or Disorientation No (0 pts) Intoxicated or Sedated No (0 pts) Impaired Gait No (0 pts) Mobility Assist Device Used No (0 pt) Altered Elimination No (0 pt) Score/Fall Risk Level 0 - 2 = Low Risk Oriented to surroundings, Maintained a safe environment, Educated pt \T\ family on fall prevention, incl call for assistance when getting out of bed, Assessed \T\ reinforced patient's understanding of fall precautions, Hourly rounding (assess needs \T\ fall precautionary measures) done, Used ambulatory aids as needed (educated on \T\ assisted with), Used gait belt as appropriate. Abuse screen: Denies threats or abuse. Nutritional screening: No deficits noted. Tuberculosis screening: No symptoms or risk factors identified. Assessment: 16:10 Reassessment: Patient appears in no apparent distress at this time. Patient and/or db family updated on plan of care and expected duration. Pain level reassessed. Patient is alert, oriented x 3, equal unlabored respirations, skin warm/dry/pink. General: Appears in no apparent distress. comfortable, Behavior is calm, cooperative. Neuro: Level of Consciousness is awake, alert, obeys commands, Oriented to person, place, time, situation, Speech is normal. Respiratory: Airway is patent Respiratory effort is even, unlabored, Respiratory pattern is regular, symmetrical. 17:28 Obstetrical Assessment: General assessment: awake and alert, skin warm and dry. db Reassessment: Patient appears in no apparent distress at this time. Patient and/or family updated on plan of care and expected duration. Pain level reassessed. Patient is alert, oriented x 3, equal unlabored respirations, skin warm/dry/pink. Vital Signs: 14:07 Pulse 86; Resp 18; Temp 98.2; Pulse Ox 100% ; Weight 90.72 kg; Height 5 ft. 4 in. ; ap3 Pain 2/10; 14:13 BP 150 / 98; ap3 16:02 BP 123 / 87; Pulse 88; Resp 16; Pulse Ox 99% on R/A; db 16:57 BP 126 / 84; Pulse 87; Resp 16; Pulse Ox 97% ; ko1 17:15 BP 129 / 87; Pulse 91; Resp 18; Pulse Ox 97% on R/A; db 14:07 Body Mass Index 34.33 (90.72 kg, 162.56 cm) ap3 14:07 Pain Scale: Adult ap3 Vitals: 17:29 Heart Tones na. db ED Course: 14:03 Patient arrived in ED. al6 14:04 [facility] kb 14:04 Jean Carlos Morgan MD is Attending Physician. kb 14:11 Triage completed. ap3 14:12 Arm band placed on right wrist. ap3 14:38 US Transvaginal Ob In Process Unspecified. EDMS 15:53 Urine collected: clean catch specimen, clear. ap3 16:10 Patient has correct armband on for positive identification. Bed in low position. Call db light in reach. Side rails up X 1. Pulse ox on. NIBP on. Pillow given. 16:10 No provider procedures requiring assistance completed. Inserted saline lock: 20 gauge db in left antecubital area, using aseptic technique. Blood collected. Flushed with 10 mL NS. 16:16 Quin Lebron, RN is Primary Nurse. db 16:57 Provided Education on: labs. ko1 17:28 IV discontinued, intact, bleeding controlled, No redness/swelling at site. db Administered Medications: No medications were administered Medication: 16:10 VIS not applicable for this client. db Outcome: 17:20 Discharge ordered by . kb 17:28 Discharged to home ambulatory, db 17:28 Condition: stable 17:28 Discharge instructions given to patient, Instructed on discharge instructions, follow up and referral plans. 17:29 Patient left the ED. db Signatures: Dispatcher [employer] EDLA Jaelyn Lafleur FNP-C FNP-Toña Mace RN RN ap3 Aline Winn, RN RN ko1 Quin Lebron, RN RN db Sandra Bess al6 Corrections: (The following items were deleted from the chart) 14:13 14:07 Chief complaint: Patient states: she has been having heavy bleeding for 8 days ap3 with a positive test last night. LMP 08/26/24, however patient reports being irregular ap3
[2024-11-13 19:47] VITALS: TEMP 98.2
[2024-11-13 20:04] VITALS: O2SAT 97
[2024-11-13 20:05] VITALS: BP 129/87
== END 2024-11-13 17:29 | disposition home or self-care (01) ==
LOC: ER 13:59
DX: O20.0 Threatened abortion (principal)
CPT/HCPCS: 36415; 76817; 80048; 81001; 81025; 84702; 85025; 86900; 86901; 99284